=== PATIENT | female | born 1985 | race Caucasian/White ===

== ENCOUNTER 2017-05-12 22:37 | Emergency (ER) | payer OTHER | END 2017-05-12 23:55 | disposition home or self-care (01) | LOC: FTE 22:37 | DX: R05 Cough (principal) | CPT/HCPCS: 99283 ==

== ENCOUNTER → 2018-08-21 | Emergency (ER) | payer MEDICAID, OTHER | END | disposition home or self-care (01) | LOC: FTE 15:43 | DX: S93.601A Unspecified sprain of right foot, initial encounter (principal); X50.1XXA Overexertion from prolonged static or awkward postures, initial encounter; Y92.9 Unspecified place or not applicable | CPT/HCPCS: 73630; 99283-25 ==